=== PATIENT | male | born 1970 | race Caucasian/White ===

== ENCOUNTER 2016-09-25 18:03 | Emergency (ER) | payer OTHER ==
[2016-09-25] MEDS ORDERED: PROPARACAINE 0.5% 15 ML OPHT DROP LEFTEYE ONE (18:14)
[2016-09-25 18:15] VITALS: PULSE 88
[2016-09-25] MEDS ORDERED: OXYCODONE/APAP 5/325 TAB PO ONE (18:32)
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
[2016-09-25] MEDS ORDERED: ERYTHROMYCIN 0.5% 1 GM OPHT.OINT EACHEYE ONE (20:51)
[2016-09-25] MEDS ORDERED: TOBRAMYCIN 0.3% SOLN PREPACK OPHT.BTL TAKEHOME ONE (21:10)
[2016-09-25 21:17] VITALS: BP 128/89; RESP 16; TEMP 98.1; O2SAT 95
[2016-09-25] MEDS ORDERED: TOBRAMYCIN/DEXAMETH 5 ML OPHT.BTL LEFTEYE SCH (22:00)
== END 2016-09-25 21:16 | disposition home or self-care (01) ==
LOC: CED 18:03
DX: T54.3X1A Toxic effect of corrosive alkalis and alkali-like substances, accidental (unintentional), initial encounter (principal); F17.200 Nicotine dependence, unspecified, uncomplicated; T26.92XA Corrosion of left eye and adnexa, part unspecified, initial encounter; T32.0 Corrosions involving less than 10% of body surface; X58.XXXA Exposure to other specified factors, initial encounter